=== PATIENT | male | born 1965 | race American Indian/Alaskan Native ===

== ENCOUNTER 2017-03-26 22:06 | Emergency (ER) | payer SELFPAY ==
[2017-03-26 22:10] VITALS: BP 132/78; PULSE 78; RESP 18; TEMP 97.8; O2SAT 99
--- NOTE | 2017-03-26 23:03 | ED PDOC ---
HPI: General Adult Time Seen by Provider: 03/26/17 23:02 Chief Complaint (Nursing): Medical Clearance Chief Complaint (Provider): hand injury History Per: Patient (52 y/o male in police custody here for evaluation of right hand injury that occurred 1 week prior. States he struck against object ( unsure what). IS right hand dominant.) Past Medical History Reviewed: Historical Data, Nursing Documentation, Vital Signs Vital Signs: Last Vital Signs Temp 97.8 F 03/26/17 22:07 Pulse 78 03/26/17 22:07 Resp 18 03/26/17 22:07 BP 132/78 03/26/17 22:07 Pulse Ox 99 03/27/17 00:11 - Family History Family History: States: No Known Family Hx - Home Medications Home Medications: Ambulatory Orders Medication Instructions Recorded Naproxen 375 mg PO Q8 PRN #21 tablet 03/27/17 - Allergies Allergies/Adverse Reactions: Allergies Allergy/AdvReac Type Severity Reaction Status Date / Time No Known Allergies Allergy Verified 03/26/17 22:07 Review of Systems ROS Statement: Except As Marked, All Systems Reviewed And Found Negative Physical Exam - Reviewed Nursing Documentation Reviewed: Yes Vital Signs Reviewed: Yes - Physical Exam Appears: Positive for: Well, Non-toxic, No Acute Distress Head Exam: Positive for: ATRAUMATIC, NORMAL INSPECTION, NORMOCEPHALIC Skin: Positive for: Normal Color, Warm, DRY Eye Exam: Positive for: EOMI, Normal appearance, PERRL ENT: Positive for: Normal ENT Inspection Neck: Positive for: Normal, Painless ROM Cardiovascular/Chest: Positive for: Regular Rate, Rhythm Respiratory: Positive for: CNT, Normal Breath Sounds Gastrointestinal/Abdominal: Positive for: Normal Exam, Bowel Sounds, Soft Back: Positive for: Normal Inspection Extremity: Positive for: Normal ROM, Swelling (right hand swelling ulnar aspect. Able to move digits without tenderness noted fifth digit.) Neurologic/Psych: Positive for: Alert, Oriented - ECG O2 Sat by Pulse Oximetry: 99 - Progress ED Course And Treament: xry of hand: (+) fx of fifth metacarpal minimally displaced d/w Dr. Watters. Ulnar gutter splint and f/u with her outpatient. Disposition - Clinical Impression Clinical Impression: Boxers fracture - Patient ED Disposition Is Patient to be Admitted: No - Disposition Referrals: April Watters MD [Staff Provider] - Disposition: Routine/Home Disposition Time: 00:09 Condition: FAIR Additional Instructions: PATIENT IS MEDICALLY AND PSYCHIATRICALLY CLEARED FOR INCARCERATION. Prescriptions: Naproxen 375 mg PO Q8 PRN #21 tablet PRN Reason: Pain, Moderate (4-7) Instructions: Boxer Fracture (ED) Forms: [facility] (Serbian), [facility] ED School/Work Excuse
--- NOTE | 2017-03-27 13:05 | RAD ---
PROCEDURE: Right Hand Radiographs. HISTORY: hand injury COMPARISON: None. FINDINGS: BONES: There is an oblique/diagonal fracture (Questionably comminuted) traversing the proximal 1/3 right 5th metacarpal. . Mild overlying soft tissue swelling JOINTS: Normal. No osteoarthritic changes. SOFT TISSUES: As above. No radiopaque foreign bodies. OTHER FINDINGS: None. IMPRESSION: Fracture traversing the proximal 1/3 right 5th metacarpal. . Note that this report was placed in PA review folder for followup
== END 2017-03-27 00:45 | disposition home or self-care (01) ==
LOC: H.ER 22:06
DX: S62.306A Unspecified fracture of fifth metacarpal bone, right hand, initial encounter for closed fracture (principal); W22.8XXA Striking against or struck by other objects, initial encounter; Z00.8 Encounter for other general examination; Z02.89 Encounter for other administrative examinations